=== PATIENT | male | born 1985 | race Caucasian/White ===

== ENCOUNTER 2017-03-16 13:35 | Emergency (ER) | payer BC ==
[~2017-03-16] VITALS: Ht 180.3 cm; Wt 77.1 kg
[~2017-03-16 13:35] MED LIST: ANAPROX275 MG PO; APAP/BUTALBITAL1 TA1 PO; CIPRO 500MG TA500 MG PO; CIPROFLOXACIN500 MG OR; CLINDAMYCIN HC150 MG PO; DARVOCET-N 1001 EACH PO; DARVOCET-N6 EACH/PAK PO; ERY-TAB 250MG250 MG OR; FLEXERIL10 MG PO; FLONASE ALLERG9.9 ML NS; HABITROL21 MG/24 H TD; HYDROCODONE 7.51 TAB PO; HYDROCODONE1 TABLET PO; IMODIUM 2MG. CAP2 MG PO; KEFLEX 500MG.500 MG PO; LEVAQUIN500 MG PO; LORTAB 5/500 501 TAB PO; LORTAB 500 MG-71 TAB PO; MEDROL 4MG. DOSE4 MG PO; MOTRIN 600MG.600 MG PO; Monodox100 MG PO; NAPROSYN 500MG500 MG PO; NOMEDS *; PERCOCET 5/3251 EACH PO; PHENERGAN 25MG.25 M1 PO; PHENERGAN 25MG.25 MG PR; PREDNISONE 20MG20 MG PO; PROMETHAZI6.25 MG/1 PO; PYRIDIUM100 M1 PO; SEPTRA DS 800 M1 TAB PO; SULFAMETHOXAZOL1 TA6 PO; TESSALON PERLE100 M1 PO; TRAMADOL 50MG T50 MG PO; TYLENOL EXTRA500 M1 PO; ULTRACET 325 MG1 TAB PO; VIBRAMYCIN 100100 MG PO; VICODIN 5/500 T1 TAB PO; VICODIN 7.5/501 EACH PO; VOLTAREN75 MG PO; ZITHROMAX Z-PA250 M2 PO; ZOFRAN ODT4 MG PO
--- NOTE | 2017-03-16 13:53 | [facility] Report ---
History of Present Issue Date/Time Seen by Provider 03/16/17 8902 Visit Reason Pt arrived: Presenting Problem: Location if Accident: Onset of symptoms date/time:/ or onset unknown for: Have you (or family members/close friends) recently traveled outside the [place]? If Yes, where/when: Have you had exposure to infectious disease within the past month? TB? Other? Specify: Source patient, RN notes reviewed Exam Limitations no limitations Comment Cough, sinus pain and pressure, congestion X 2-3 days. On Amoxil for pulled tooth, but states that he can't quit coughing. Chest is sore. No fever. He does smoke. ALLERGIES Coded Allergies: Alvarado (From STRAWBERRIES (FOOD/DRUG)) (THROAT SWELLS, RASH 12/03/16) Penicillins (12/03/16) hydrocodone (12/03/16) latex (12/03/16) strawberry (From STRAWBERRIES (FOOD/DRUG)) (THROAT SWELLS, RASH 12/03/16) Home Medications Active Scripts Levofloxacin (Levaquin 500MG) 500 MG PO DAILY #7 TAB Prov: 12/13/16 Nicotine (Nicotine Patch) 21 MG TD DAILY #30 PATCH Ref 1 Prov: 12/13/16 PROMETHAZINE HCL (Promethazine Hydrochloride) 6.25 MG PO Q6HP PRN COUGH #240 SYR Ref 1 Prov: 12/13/16 History Medical History General CAD? No Angina: No NC: No Hypertension? No Hyperlipidemia? No CHF? No DVT? No PE? No COPD? No Asthma? Yes Anemia? No GERD? No Gastric ulcers? No GI Bleed? No Hernia? No Thyroid Problems? No Hypothyroidism? No CVA? No Seizures? Yes Diabetes? No Insulin Dependent: No Insulin Pump: No Home FSBS? No Renal Insuffiency? No UTI? No Stones? No BPH? No GB Disease: No Nephritic Syndrome? No Asplenia? No Hepatitis? No Sickle Cell Disease? No Arthritis? No Migraines? No Cataracts? No Glaucoma? No MRSA? No HIV? No TB? No Anxiety? No Depression? No Cancer? No More? No Immunization HX DT/Tetanus 1-4 YRS Pneumonia Refuses Surgical Hx Previous Surgery?Y Hernia Repair BIOPSY OF STOMACH Family History Family HX Diabetes No CAD No Hypertension Yes Hyperlipidemia No Cancer Yes TB No Social History Smoking Hx Packs/day < 1 Pack Alcohol Alcohol: No Review of Systems All Other Systems Reviewed and Negative Respiratory cough Physical Exam Vital Signs Vital Signs Date Time Temp Pulse Resp B/P Pulse O2 O2 Flow FiO2 Ox Delivery Rate 03/16 1348 98.2 92 20 131/79 97 General Appearance normal appearance, no apparent distress Ear, Nose, Throat hearing grossly normal, normal ENT inspection Respiratory Status No: respiratory distress, trachea midline, chest symmetrical. Lung Sounds bilateral: decreased breath sounds, rales. Cardiovascular normal exam, regular rate/rhythm, no peripheral edema, no gallop, no JVD, no murmur, no rub Extremities non-tender, normal range of motion, normal inspection, normal capillary refill Neurologic alert, normal exam, oriented x 3 Mental status normal mood/affect Medical Decision Making LABS/Meds/Orders Pt receiving controlled substance in ED? No Departure Departure Time of Disposition 1357 Disposition DC Home or Self Care(routine) Clinical Impression Primary Impression: Bronchitis Condition STABLE Patient Instructions DI for Acute Bronchitis Additional Instructions Patient already on Amoxil for dental issue. Discharge Counseling Counseled pt/family regarding diagnosis, test results, medications/RX, home care, follow up needs Prescriptions Current Visit Scripts Prednisone (Prednisone 20MG) 20 MG PO BID #10 TAB Benzonatate (Tessalon Perle) 100 MG PO TIDP PRN cough #30 SGL at [id number]
[2017-03-16] MEDS ORDERED: AMOXICILLIN 25250 MG PO (13:58)
[2017-03-16] MEDS ORDERED: PREDNISONE 20MG20 MG PO (13:59)
[2017-03-16] MEDS ORDERED: TESSALON PERLE100 M1 PO (13:59)
[2017-03-16 14:10] VITALS: BP 131/79
== END 2017-03-16 14:13 | disposition home or self-care (01) ==
LOC: UTC 13:35
DX: J40 Bronchitis, not specified as acute or chronic (principal)